=== PATIENT | male | born 1940 | race Caucasian/White ===

== ENCOUNTER 2018-02-24 09:45 | Emergency (ER) | payer OTHER ==
[~2018-02-24] VITALS: Ht 177.8 cm; Wt 61.2 kg
[2018-02-24 09:55] VITALS: BP 180/81
[2018-02-24] MEDS ORDERED: LACTULOSE 20Gm/30ML SOLN PO ONE (11:00)
[2018-02-24] MEDS ORDERED: KETOROLAC TROMETH 30 MG/ML 1ML VIAL IM ONE (11:00)
== END 2018-02-24 11:41 | disposition home or self-care (01) ==
LOC: ER 09:45
DX: M51.16 Intervertebral disc disorders with radiculopathy, lumbar region (principal); K59.00 Constipation, unspecified; E11.9 Type 2 diabetes mellitus without complications; I10 Essential (primary) hypertension
CPT/HCPCS: 72100; 93005; 96372; 99284; J1885

== ENCOUNTER 2018-03-04 09:27 | Emergency (ER) | payer OTHER ==
[~2018-03-04] VITALS: Ht 177.8 cm; Wt 61.2 kg
[2018-03-04 09:53] VITALS: BP 135/75
[2018-03-04] MEDS ORDERED: HYDROcodone-ACET 5/325MG TAB PO ONE (10:15)
== END 2018-03-04 10:50 | disposition home or self-care (01) ==
LOC: ER 09:27
DX: M51.36 Other intervertebral disc degeneration, lumbar region (principal); M54.16 Radiculopathy, lumbar region; E11.9 Type 2 diabetes mellitus without complications; I10 Essential (primary) hypertension; Z76.0 Encounter for issue of repeat prescription
CPT/HCPCS: 93005